=== PATIENT | female | born 1985 | race Caucasian/White ===

== ENCOUNTER 2017-07-01 17:00 | Emergency (ER) | payer BC ==
[~2017-07-01] VITALS: Ht 180.3 cm; Wt 75.7 kg
[~2017-07-01 17:00] MED LIST: ENDOCET 5-3251 EACH PO; MOTRIN800 MG PO
[2017-07-01 17:52] VITALS: BP 136/91
== END 2017-07-01 17:52 | disposition home or self-care (01) ==
LOC: EME 17:00
DX: M54.41 Lumbago with sciatica, right side (principal); Z91.040 Latex allergy status
CPT/HCPCS: 99281; 99283; J1100; J1885

== ENCOUNTER 2018-06-24 08:56 | Emergency (ER) | payer BC ==
[~2018-06-24] VITALS: Ht 180.3 cm; Wt 79.2 kg
[2018-06-24] MEDS ORDERED: LIDODERM 5% P1 PATCH TD (11:52)
[2018-06-24] MEDS ORDERED: ROBAXIN750 MG PO (11:52)
[2018-06-24] MEDS ORDERED: MEDROL DOSEPAK4 MG PO (11:52)
[2018-06-24 12:14] VITALS: BP 133/97
== END 2018-06-24 12:15 | disposition home or self-care (01) ==
LOC: EME 08:56
DX: M54.5 Low back pain (principal); Z91.040 Latex allergy status
CPT/HCPCS: 99281; 99284; J1100; J3010